=== PATIENT | male | born 1965 | race Caucasian/White ===

== ENCOUNTER 2016-07-07 08:22 | Day surgery (SDC) | payer OTHER ==
--- NOTE | ~2016-07-07 | EGD ---
EGD REPORT [facility] [address] [address] NAME: CLIFFORD CORONADO JR : 63 STATUS : REG [facility]#: [id number] AGE: 50 ADM/REG DATE : 07/07/16 MR#: [id number] REPORT SERV DATE: 07/07/16 DICTATED BY: JORGE ALBERTO AVELAR DATE: 07/07/16 REPORT STATUS : Draft TRANSCRIBED BY: [facility] DATE: 07/07/16 Endoscopy Center Patient Name: Clifford Coronado Date of : 1965 Attending MD: JORGE ALBERTO AVELAR MD Procedure Date No Time: 07/07/2016 Procedure: Colonoscopy Indications: Screening for colorectal malignant neoplasm Referring MD: SNEHAL BENSON Medicines: Propofol per Anesthesia Complications: No immediate complications. Procedure: Pre-Anesthesia Assessment: - ASA Grade Assessment: II - A patient with mild systemic disease. After I obtained informed consent, the scope was passed under direct vision. Throughout the procedure, the patient's blood pressure, pulse, and oxygen saturations were monitored continuously. The PCF [id number] was introduced through the anus and advanced to the terminal ileum. The colonoscopy was performed without difficulty. The patient tolerated the procedure well. The quality of the bowel preparation was excellent. Scope withdrawal time was 6 minutes. Findings: The terminal ileum appeared normal. Multiple small-mouthed diverticula were found in the sigmoid colon. The exam was otherwise without abnormality. Impression: - The examined portion of the ileum was normal. - Diverticulosis in the sigmoid colon. - The examination was otherwise normal. Recommendation: - The patient will be observed post-procedure, until all discharge criteria are met. - Return to previous diet today. - Continue present medications. - Repeat colonoscopy in 10 years for screening purposes. - The findings and recommendations were discussed with the patient and their family. - After the procedure, if you experience any pain in abdomen or chest,shortness of breath,fever,chills,blood in stool,rectal bleeding,vomiting of any material,nausea,black stools or weakness or dizziness, GO TO THE EMERGENCY IMMEDIATELY!!!!!!!!! EGD REPORT [address] [address] NAME: CLIFFORD CORONADO JR : 63 STATUS : REG [facility] PAT#: [id number] AGE: 50 ADM/REG DATE : 07/07/16 MR#: [id number] REPORT SERV DATE: 07/07/16 DICTATED BY: JORGE ALBERTO AVELAR. DATE: 07/07/16 REPORT STATUS : Draft TRANSCRIBED BY: [employer] DATE: 07/07/16 Procedure Code(s): --- Professional --- 94302, Colonoscopy, flexible, proximal to splenic flexure; diagnostic, with or without collection of specimen(s) by brushing or washing, with or without colon decompression (separate procedure) Diagnosis Code(s): --- Professional --- K57.30, Diverticulosis of large intestine without perforation or abscess without bleeding Z12.11, Encounter for screening for malignant neoplasm of colon CPT copyright 2013 [employer]. All rights reserved. The codes documented in this report are preliminary and upon barbecue cook review may be revised to meet current compliance requirements. Attending Participation: I personally performed the entire procedure. Jorge Alberto Avelar MD JORGE ALBERTO AVELAR MD 07/07/2016 10:17 AM This report has been signed electronically. Number of Addenda: 0 Note Initiated On: 07/07/2016 9:49 AM Scope Withdrawal Time 0 hours 4 minutes 3 seconds [id number] [id number]
[~2016-07-07 08:22] MED LIST: LIPITOR40 PO
== END 2016-07-07 23:59 | disposition home health service (06) ==
LOC: DMU 08:22
PROVIDERS: Internal Medicine Gastroenterology
PROC: 0DJD8ZZ Inspection of Lower Intestinal Tract, Via Natural or Artificial Opening Endoscopic (ICD-10-PCS; principal; 2016-07-07 10:30)
DX: Z12.11 Encounter for screening for malignant neoplasm of colon (principal); I10 Essential (primary) hypertension; K57.30 Diverticulosis of large intestine without perforation or abscess without bleeding; F17.210 Nicotine dependence, cigarettes, uncomplicated; E78.00 Pure hypercholesterolemia, unspecified; Z98.890 Other specified postprocedural states